=== PATIENT | female | born 1975 | race Caucasian/White ===

== ENCOUNTER 2017-05-22 13:49 | Emergency (ER) | payer OTHER ==
[~2017-05-22] VITALS: Ht 157.5 cm; Wt 84.3 kg
[~2017-05-22 13:49] MED LIST changes: -QVRINH80; -VNTHFA/IN INH
[2017-05-22 13:55] VITALS: TEMP 36.7; Ht 157.5 cm; Wt 84.3 kg
--- NOTE | 2017-05-22 14:12 | EMERGENCY ROOM VISIT NOTE ---
History Report prepared by Jed: Rashmi Hartmann Under the Supervision of: Dr. Mynor Stafford D.O. First contact with patient: 14:00 Chief Complaint: REFERRED BY DOCTOR Stated Complaint: DOCTOR TOLD TO COME IN History of Present Illness The patient is a 42 year old female who presents to the Emergency Room with complaints of persistent chest pain for the past 3 weeks. She rates her discomfort as a 3/10 in severity. Nothing seems to make her pain better or worse. Breathing does not worsen the pain. An inhaler has provided minimal relief. She reports she went to her doctors office this morning, at [facility], for worsening asthma symptoms and also complained of pain in her right leg, which has been intermittent since undergoing surgery in September 2016. She had an Ultrasound of the lower leg, and a D-Dimer test run because of a history of factor V and states the labs came back abnormal, so she was referred here to the ED. The patient denies any recent abdominal pain. She has never experienced a PE or DVT before. She is currently on her menstrual period. Source of History: patient Onset: 3 weeks MENDER HAND Position: chest Symptom Intensity: 3/10 Timing: other (persistent) Modifying Factors (Relieving): other (inhaler) Associated Symptoms: No abdominal pain Review of Systems See HPI for pertinent positives & negatives. A total of 10 systems reviewed and were otherwise negative. Past Medical & Surgical Medical Problems: (1) Factor V deficiency Family History Diabetes mellitus Hypertension Social History Smoking Status: Never Smoker Alcohol Use: none Drug Use: none Marital Status: single Housing Status: lives with family Occupation Status: employed Current/Historical Medications Scheduled Aspirin (Aspirin Ec), 81 MG PO DAILY Scheduled PRN Albuterol Hfa (Ventolin Hfa), 2-4 PUFFS INH Q6H PRN for SOB/Wheezing Miscellaneous Medications Beclomethasone Dip (Qvar) Allergies Coded Allergies: Naproxen (Unverified Allergy, Unknown, ., 05/22/17) Physical Exam Vital Signs Date Time Temp Pulse Resp B/P (MAP) Pulse Ox O2 Delivery O2 Flow Rate FiO2 05/22/17 16:10 95 18 146/98 98 Room Air 05/22/17 14:40 99 Room Air 05/22/17 13:55 36.7 93 18 162/90 100 Room Air Physical Exam GENERAL: Patient is awake, alert, in no acute distress, patient is resting comfortably and showing no signs of anxiety EYES: The conjunctivae are clear. The pupils are round and reactive. EARS, NOSE, MOUTH AND THROAT: The nose is without any evidence of any deformity. Mucous membranes are moist tongue is midline NECK: The neck is nontender and supple. RESPIRATORY: Normal respiratory effort is noted there is no evidence of wheezing rhonchi or rales CARDIOVASCULAR: Regular rate and rhythm noted there no murmurs rubs or gallops normal S1 normal S2 GASTROINTESTINAL: The abdomen is soft. Bowel sounds are present in all quadrants. Abdomen is nontender MUSCULOSKELETAL/EXTREMITIES: There is no evidence of gross deformity full range of motion is noted in the hips and shoulders SKIN: There is no obvious evidence of any rash. There are no petechiae, pallor or cyanosis noted. NEUROLOGIC: Patient is awake alert and oriented x3 Medical Decision & Procedures ER Provider Diagnostic Interpretation: Radiology results as stated below per my review and radiologist interpretation: ULTRASOUND R VENOUS DOPP LOWER EXT UNILAT CLINICAL HISTORY: Right leg pain and shortness of breath COMPARISON STUDY: No previous studies for comparison. FINDINGS: Real-time and color flow Doppler imaging were performed. Flow was seen within the femoral, popliteal and calf veins with no intraluminal thrombus demonstrated. The saphenous vein is patent. IMPRESSION: No evidence of right lower extremity DVT. Electronically signed by: Williams Pacheco M.D. 05/22/2017 1:14 PM Laboratory Results 05/22/17 14:25 Red Blood Count 4.88, Mean Corpuscular Volume 86.7, Mean Corpuscular Hemoglobin 29.7, Mean Corpuscular Hemoglobin Concent 34.3, Mean Platelet Volume 9.5, Neutrophils (%) (Auto) 77.5, Lymphocytes (%) (Auto) 16.3, Monocytes (%) (Auto) 5.0, Eosinophils (%) (Auto) 0.7, Basophils (%) (Auto) 0.3, Neutrophils # (Auto) 6.97, Lymphocytes # (Auto) 1.47, Monocytes # (Auto) 0.45, Eosinophils # (Auto) 0.06, Basophils # (Auto) 0.03 05/22/17 14:25 Test 05/22/17 14:25 05/22/17 15:05 White Blood Count 9.00 K/uL (4.8-10.8) Red Blood Count 4.88 M/uL (4.2-5.4) Hemoglobin 14.5 g/dL (12.0-16.0) Hematocrit 42.3 % (37-47) Mean Corpuscular Volume 86.7 fL (80-100) Mean Corpuscular Hemoglobin 29.7 pg (25-34) Mean Corpuscular Hemoglobin Concent 34.3 g/dl (32-36) Platelet Count 213 K/uL (130-400) Mean Platelet Volume 9.5 fL (7.4-10.4) Neutrophils (%) (Auto) 77.5 % Lymphocytes (%) (Auto) 16.3 % Monocytes (%) (Auto) 5.0 % Eosinophils (%) (Auto) 0.7 % Basophils (%) (Auto) 0.3 % Neutrophils # (Auto) 6.97 K/uL (1.4-6.5) Lymphocytes # (Auto) 1.47 K/uL (1.2-3.4) Monocytes # (Auto) 0.45 K/uL (0.11-0.59) Eosinophils # (Auto) 0.06 K/uL (0-0.5) Basophils # (Auto) 0.03 K/uL (0-0.2) RDW Standard Deviation 40.4 fL (36.4-46.3) RDW Coefficient of Variation 12.7 % (11.5-14.5) Immature Granulocyte % (Auto) 0.2 % Immature Granulocyte # (Auto) 0.02 K/uL (0.00-0.02) Prothrombin Time 10.0 SECONDS (9.0-12.0) Prothromb Time International Ratio 1.0 (0.9-1.1) Activated Partial Thromboplast Time 27.5 SECONDS (21.0-31.0) Partial Thromboplastin Ratio 1.1 Anion Gap 5.0 mmol/L (3-11) Est Creatinine Clear Calc Drug Dose 88.9 ml/min Estimated GFR () 100.8 Estimated GFR (Non- 87.0 BUN/Creatinine Ratio 14.2 (10-20) Calcium Level 8.7 mg/dl (8.5-10.1) Total Bilirubin 0.4 mg/dl (0.2-1) Direct Bilirubin 0.1 mg/dl (0-0.2) Aspartate Amino Transf (AST/SGOT) 15 U/L (15-37) Alanine Aminotransferase (ALT/SGPT) 22 U/L (12-78) Alkaline Phosphatase 62 U/L (45-117) Troponin I < 0.015 ng/ml (0-0.045) Total Protein 7.3 gm/dl (6.4-8.2) Albumin 3.9 gm/dl (3.4-5.0) Lipase 92 U/L (73-393) Human Chorionic Gonadotropin, Qual NEG (NEG) Bedside D-Dimer > 450 ng/mlFEU (0-450) Laboratory results per my review. ECG Indication: chest pain Rate (beats per minute): 86 Rhythm: normal sinus Findings: no ectopy, other (No acute ST segment abnormalities, LVH by voltage criteria) ED Course 1402: The patient was evaluated in room A11. A complete history and physical examination were performed. 1605: I reevaluated the patient. She is feeling well and resting comfortably. I discussed her results and discharge instructions and she verbalized complete understanding and agreement. Medical Decision Prior records/ancillary studies reviewed. Triage Nursing notes reviewed. The patient's history was concerning for chest pain. Differential diagnosis: Etiologies such as cardiac ischemia, aortic dissection, pulmonary embolism, pneumonia, pneumothorax, musculoskeletal, infections, pericarditis, myocarditis , esophageal rupture, gastrointestinal, as well as others were entertained. The patient is a 42-year-old female who presented to the emergency department for evaluation of chest pain difficulty breathing. The patient describes some chest discomfort which was positional but did not appear to be consistent with pericarditis. She's had these symptoms ongoing for quite some time but had laboratory studies by her primary care physician which revealed an elevated d- dimer. She was sent to the emergency department for an evaluation of an elevated d-dimer and for CT the chest. I discussed the patient's laboratory and radiographic studies with her. Her CT did not reveal any signs of acute pulmonary embolism. She was encouraged to rest and avoid any strenuous activity. She was encouraged to call her primary care physician to schedule follow-up appointment. She was also encouraged to return to the emergency department immediately if symptoms change worsen or the need arises. I did recommend that she may want to try a trial of proton pump inhibitor over-the- counter for possible GI cause for her pain. Medication Reconcilliation Current Medication List: was personally reviewed by me Blood Pressure Screening Patient's blood pressure: Elevated blood pressure Blood pressure disposition: Elevated BP felt to be situational Impression Primary Impression: Chest pain Scribe Attestation The scribe's documentation has been prepared under my direction and personally reviewed by me in its entirety. I confirm that the note above accurately reflects all work, treatment, procedures, and medical decision making performed by me. Departure Information Dispostion Home / Self-Care Referrals No Doctor, Assigned (PCP) Patient Instructions ED Chest Pain Atypical Unkn Cause, [facility] Additional Instructions Call your family to schedule a follow-up appointment. Rest and avoid any strenuous activity. Return to the emergency apartment immediately if symptoms change worsen or the need arises.
[2017-05-22 14:40] VITALS: O2SAT 99
[2017-05-22 14:42] LABS: BASO % 0.3 %; BASO ABS # 0.03 K/uL (0-0.2); COMPLETE YES; EOS % 0.7 %; HEMATOCRIT 42.3 % (37-47); IG% 0.2 %; LYMPH % 16.3 %; LYMPH ABS # 1.47 K/uL (1.2-3.4); MEAN CELL VOLUME 86.7 fL (80-100); MEAN CORPUSCULAR HEMOGLOBIN 29.7 pg (25-34); MEAN CORPUSCULAR HGB CONC 34.3 g/dl (32-36); MEAN PLATELET VOLUME 9.5 fL (7.4-10.4); NEUT % 77.5 %; PLATELET COUNT 213 K/uL (130-400); RED BLOOD COUNT 4.88 M/uL (4.2-5.4)
[2017-05-22] MEDS ORDERED: QVRINH80 (14:44)
[2017-05-22] MEDS ORDERED: VNTHFA/IN INH (14:44)
[2017-05-22 14:52] LABS: PARTIAL THROMBOPLASTIN RATIO 1.1
[2017-05-22 14:59] LABS: AST/SGOT 15 U/L (15-37); BLOOD UREA NITROGEN 12 mg/dl (7-18); BUN/CREATININE RATIO 14.2 (10-20); CALCIUM 8.7 mg/dl (8.5-10.1); CARBON DIOXIDE 27 mmol/L (21-32); CHLORIDE 105 mmol/L (98-107); CREATININE 0.83 mg/dl (0.60-1.20); GLUCOSE 89 mg/dl (70-99); POTASSIUM 3.8 mmol/L (3.5-5.1); SODIUM 137 mmol/L (136-145)
[2017-05-22 15:04] LABS: ALKALINE PHOSPHATASE 62 U/L (45-117); ALT/SGPT 22 U/L (12-78)
[2017-05-22 15:21] LABS: PREG INTERNAL NEGATIVE QC NEG CLEAR BACKGROUND; PREG INTERNAL POSITIVE QC POS CONTROL LINE
[2017-05-22] MEDS ORDERED: OPTIRAY 320 IV PRN (15:45)
--- NOTE | 2017-05-22 15:49 | DIAGNOSTIC IMAGING REPORT ---
(CHEST FOR PE) ANGIO WITH CT DOSE: 278.20 mGy.cm HISTORY: Chest pain dyspnea TECHNIQUE: Multiaxial CT images of the chest were performed following the intravenous administration of contrast to evaluate the pulmonary arteries. Maximal intensity projection images were also obtained. A dose lowering technique was utilized adhering to the principles of ALARA. COMPARISON STUDY: 11/21/2013 FINDINGS: There is a normal caliber thoracic aorta with no evidence for dissection. There is no evidence for pulmonary embolus. No pleural effusions. No pneumothorax. The liver and spleen are unremarkable. No mediastinal or hilar lymphadenopathy. The central airways are patent. The lungs are clear. Stable focus of sclerosis T10 IMPRESSION: No evidence for pulmonary embolus. Lungs are clear. The above report was generated using voice recognition software. It may contain grammatical, syntax or spelling errors. Electronically signed by: Augustus Caceres M.D. 05/22/2017 3:47 PM Dictated Date/Time: 05/22/2017 3:45 PM
[2017-05-22 16:10] VITALS: BP 146/98; PULSE 95; O2SAT 98
== END 2017-05-22 16:15 | disposition home or self-care (01) ==
LOC: C.EDB 13:50 → C.EDA 16:15
DX: R07.9 Chest pain, unspecified (principal); D68.2 Hereditary deficiency of other clotting factors; Z83.3 Family history of diabetes mellitus; Z82.49 Family history of ischemic heart disease and other diseases of the circulatory system; Z79.82 Long term (current) use of aspirin

== ENCOUNTER → 2017-05-22 | Outpatient (CLI) | payer OTHER ==
[~2017-05-22] MED LIST: ALBU1AER9 INH; ASPI81TA28 PO; BENZ-54 PO; HYDR5SYP11 PO; QVRINH80; VNTHFA/IN INH; note
== END | disposition home or self-care (01) ==
LOC: C.LABSPEC 12:19
PROVIDERS: ATTEND Internal Medicine
DX: R06.02 Shortness of breath (principal); M79.661 Pain in right lower leg

== ENCOUNTER → 2017-05-22 | Outpatient (CLI) | payer OTHER ==
[~2017-05-22] MED LIST changes: -BENZ-54 PO; +BENZ100C6 PO
--- NOTE | 2017-05-22 13:16 | DIAGNOSTIC IMAGING REPORT ---
ULTRASOUND R VENOUS DOPP LOWER EXT UNILAT CLINICAL HISTORY: Right leg pain and shortness of breath COMPARISON STUDY: No previous studies for comparison. FINDINGS: Real-time and color flow Doppler imaging were performed. Flow was seen within the femoral, popliteal and calf veins with no intraluminal thrombus demonstrated. The saphenous vein is patent. IMPRESSION: No evidence of right lower extremity DVT. Electronically signed by: Williams Pacheco M.D. 05/22/2017 1:14 PM Dictated Date/Time: 05/22/2017 1:14 PM
== END | disposition home or self-care (01) ==
LOC: C.ULTRBC 12:49
PROVIDERS: ATTEND Internal Medicine
DX: R06.02 Shortness of breath (principal); M79.661 Pain in right lower leg